=== PATIENT | female | born 1995 | race American Indian/Alaskan Native ===

== ENCOUNTER 2020-12-25 19:27 | Emergency (ER) | payer BC ==
[2020-12-25 20:17] VITALS: BP 115/63
--- NOTE | 2020-12-25 20:55 | Emergency Department Report ---
Chief Complaint: Headache Stated Complaint: ABD PAIN/HEADACHE - HPI History of Present Illness: 25-year-old -[place] female presents to the emergency room stating that she was having nausea and vomiting a headache earlier this week things have resolved and she did get a negative covid test with paperwork to prove it. Patient states her symptoms have resolved. She is just trying to get a work excuse to return back to work. - Exam Vital Signs: Vital Signs 12/25/20 20:14 Temperature 98.6 F Pulse Rate 81 Respiratory 20 Rate Blood Pressure 115/63 O2 Sat by Pulse 99 Oximetry Physical Exam: Gen: alert oriented NAD Cardic: regular rate and rhythm no murmurs appreciated Resp: Clear to auscultation bilateral no wheezing no rales or rhonchi. Abdomen: Soft nontender nondistended normal bowel sounds. Mini neuro: strengh 4/5 all extrimities, Alert and oriented time 3 Crainal nerve II-IIX intact MSE screening note: Focused history and physical exam performed. Due to findings the following was ordered: 25-year-old -[place] female presents to the emergency room stating that she was having nausea and vomiting a headache earlier this week things have resolved and she did get a negative covid test with paperwork to prove it. Patient states her symptoms have resolved. She is just trying to get a work excuse to return back to work. ED Disposition for MSE Disposition: Z-07 MED SCREENING EXAM-LEFT Is pt being admited?: No Does the pt Need Aspirin: No Condition: Stable Additional Instructions: Tylenol ibuprofen or Aleve for headache. Be sure to eat and increase your water intake. Referrals: [facility] [Provider Group] - 3-5 Days Forms: Work/School Release Form(ED)
== END 2020-12-25 20:45 | disposition left against medical advice (07) ==
LOC: ED 19:27
DX: R11.2 Nausea with vomiting, unspecified (principal); R51.9 Headache, unspecified; Z53.21 Procedure and treatment not carried out due to patient leaving prior to being seen by health care provider